=== PATIENT | female | born 1945 | race Caucasian/White ===

== ENCOUNTER 2019-05-20 23:27 | Emergency (ER) | payer MEDICARE ==
[~2019-05-20] VITALS: Ht 170.2 cm; Wt 104.5 kg
[~2019-05-20 23:27] MED LIST: ATOR10TA84 PO; INSNOV SQ; LISI-660 PO; METF-960 PO
[2019-05-20 23:49] LABS: GLUCOSE,POINT OF CARE 183 MG/DL (70-110)
[2019-05-20] MEDS ORDERED: ASPI81 PO (23:54)
[2019-05-20] MEDS ORDERED: GLIP10 PO (23:54)
[2019-05-20] MEDS ORDERED: GABA-531 PO (23:54)
[2019-05-20] MEDS ORDERED: BACL10TA PO (23:54)
[2019-05-20] MEDS ORDERED: FURO20 PO (23:54)
[2019-05-20] MEDS ORDERED: HYD25 PO (23:54)
[2019-05-20] MEDS ORDERED: ACET-66 PO (23:54)
[2019-05-21 01:12] LABS: EOSINOPHILS % (AUTO) 3.7 % (1.0-6.0); HEMATOCRIT 33.9 % (36-46); HEMOGLOBIN 10.6 g/dL (12.0-16.0); LYMPHOCYTES # (AUTO) 2.3 K/uL (1.0-4.8); LYMPHOCYTES % (AUTO) 35.9 % (22.0-44.0); MEAN CORPUSCULAR HEMOGLOBIN 29.5 pg (26.0-34.0); MEAN CORPUSCULAR HGB CONC 31.3 G/dL (31.0-37.0); MEAN CORPUSCULAR VOLUME 94 fL (80-100); MONOCYTES # (AUTO) 0.7 K/uL (0.1-1.0); MONOCYTES % (AUTO) 11.6 % (2.0-9.0); NEUTROPHILS # (AUTO) 3.1 K/uL (1.8-7.7); NEUTROPHILS % (AUTO) 47.8 % (40.0-70.0); PLATELET COUNT (AUTO) 101 K/uL (150-450); RED CELL DISTRIBUTION WIDTH 14.6 % (11.5-14.5)
[2019-05-21 01:20] LABS: CREATININE 1.55 mg/dL (0.60-1.30); POTASSIUM 4.4 mmol/L (3.5-5.1)
[2019-05-21 01:25] LABS: ALBUMIN 2.8 g/dL (3.4-5.0); BILIRUBIN,TOTAL 0.4 mg/dL (0.1-1.0); TOTAL PROTEIN, SERUM 7.2 g/dL (6.4-8.2)
[2019-05-21] MEDS ORDERED: SODIUM CHLORIDE 0.9% 1,000 ML IV ONE (02:15)
[2019-05-21 02:55] LABS: PLATELET MORPHOLOGY COMMENT LARGE PLTS PRESENT
[2019-05-21 03:47] VITALS: BP 120/74
== END 2019-05-21 03:50 | disposition home or self-care (01) ==
LOC: EMS 23:30
DX: I95.9 Hypotension, unspecified (principal); G89.29 Other chronic pain; M54.5 Low back pain; I10 Essential (primary) hypertension; E78.00 Pure hypercholesterolemia, unspecified; E11.9 Type 2 diabetes mellitus without complications; I25.10 Atherosclerotic heart disease of native coronary artery without angina pectoris; Z88.0 Allergy status to penicillin; Z79.899 Other long term (current) drug therapy; Z79.84 Long term (current) use of oral hypoglycemic drugs
CPT/HCPCS: 36415; 80053; 82962; 83880; 84484; 85025; 93005; 96360; 99284; J7030

== ENCOUNTER 2019-06-21 14:39 | Emergency (ER) | payer MEDICARE ==
[~2019-06-21] VITALS: Ht 180.3 cm; Wt 100.0 kg
[~2019-06-21 14:39] MED LIST changes: +ACET-66 PO; +ASPI81 PO; +BACL10TA PO; +FURO20 PO; +GABA-531 PO; +GLIP10 PO; +HYD25 PO; -INSNOV SQ; -LISI-660 PO
[2019-06-21 15:05] LABS: GLUCOSE,POINT OF CARE 173 MG/DL (70-110)
[2019-06-21] MEDS ORDERED: LORazepam 2 MG TABLET PO ONE (16:00)
[2019-06-21 19:12] VITALS: BP 141/90
== END 2019-06-21 19:17 | disposition home or self-care (01) ==
LOC: EMS 14:41
DX: M54.5 Low back pain (principal); R32 Unspecified urinary incontinence; R20.0 Anesthesia of skin; E11.9 Type 2 diabetes mellitus without complications; E78.00 Pure hypercholesterolemia, unspecified; I25.10 Atherosclerotic heart disease of native coronary artery without angina pectoris; I10 Essential (primary) hypertension; Z79.899 Other long term (current) drug therapy; Z88.0 Allergy status to penicillin; Z95.5 Presence of coronary angioplasty implant and graft
CPT/HCPCS: 72148